=== PATIENT | male | born 1955 | race Caucasian/White ===

== ENCOUNTER → 2018-04-07 | Outpatient (CLI) | payer BC ==
[~2018-04-07] MED LIST: ADVIL200 M1 PO; DEPAKOTE500 MG PO
== END ==
LOC: RAD 15:28
PROVIDERS: ATTEND Internal Medicine
DX: H34.232 Retinal artery branch occlusion, left eye (principal)
CPT/HCPCS: 93306; 93880

== ENCOUNTER 2024-05-16 08:54 | Inpatient (IN) | payer BC, OTHER ==
[2024-05-15 12:27] LABS: BASOPHILS # (AUTO) 0.1 (0.0-0.1); BASOPHILS % 0.9 % (0.0-1.0); EOSINOPHILS # (AUTO) 0.2 (0.0-0.4); EOSINOPHILS % 2.9 % (0.0-6.0); HEMATOCRIT 43.8 % (38.2-49.6); HEMOGLOBIN 14.3 g/dL (14.0-18.0); LYMPHOCYTES # (AUTO) 2.2 (1.0-3.2); LYMPHOCYTES % 38.8 % (18.0-39.1); MEAN CORPUSCULAR HEMOGLOBIN 31.2 pg (28-32); MEAN CORPUSCULAR HGB CONC 32.6 g/dL (31-35); MEAN CORPUSCULAR VOLUME 95.6 fL (81-99); MONOCYTES # (AUTO) 0.6 (0.2-0.8); MONOCYTES % 9.9 % (4.4-11.3); NEUTROPHILS # (AUTO) 2.6 (2.1-6.9); NEUTROPHILS % 47.3 % (38.7-80.0); PLATELET COUNT 193 x10e3/uL (140-360); RED BLOOD COUNT 4.58 x10e6/uL (4.3-5.7); WHITE BLOOD COUNT 5.57 x10e3/uL (4.8-10.8)
[2024-05-15 12:47] LABS: ANION GAP 15.6 mmol/L (8-16); CALCIUM 9.9 mg/dL (8.4-10.2); CREATININE, SERUM 1.06 mg/dL (0.72-1.25); POTASSIUM 4.6 mmol/L (3.5-5.1)
[~2024-05-16] VITALS: Ht 167.6 cm; Wt 92.1 kg
[~2024-05-16 08:54] MED LIST changes: +ASPIRIN81 MG PO; +ATORVASTATIN CA20 MG PO; +CARVEDILOL3.125 MG PO; +FINASTERIDE5 MG PO; +FLOMAX0.4 MG PO; +MONTELUKAST SOD10 MG PO; +MYSOLINE50 MG PO
[2024-05-16] MEDS: SODIUM CHLORIDE 0.9% 1000ML 1,000 ML ONE (09:46)
[2024-05-16] MEDS: GENTAMICIN 80MG/NS 100 ML 200 ML IV ONE (09:46)
[2024-05-16] MEDS: CEFTRIAXONE 1 GM VIAL ONE (09:47)
[2024-05-16] MEDS ORDERED: FENTANYL CITRATE/PF 100MCG/2 ML INJ ONE (13:03)
[2024-05-16] MEDS ORDERED: IOPAMIDOL 610MG/1ML 300 MG/ML VIAL IV ONE (13:30)
[2024-05-16] MEDS ORDERED: ROCURONIUM BROMIDE 10 MG/ML 5ML VIAL IV ONE (13:30)
[2024-05-16] MEDS ORDERED: EPHEDRINE SULFATE INJ 50 MG/ML VIAL ONE (13:30)
[2024-05-16] MEDS ORDERED: DEXAMETHASONE SOD PHOS INJ 4 MG/ML SDV ONE (13:30)
[2024-05-16] MEDS ORDERED: PROPOFOL IV EMULSION 10 MG/ML 20 ML VIAL ONE (13:30)
[2024-05-16] MEDS ORDERED: ONDANSETRON HCL INJ 2MG/ML 2ML 2 MG/ML VIAL ONE (13:30)
[2024-05-16] MEDS ORDERED: LIDOCAINE HCL 2% LOCAL INJ 5 ML SDV VIAL INJ ONE (13:30)
[2024-05-16] MEDS ORDERED: SEVOFLURANE INHAL SOLN 250 ML PEN BTL ONE (13:30)
[2024-05-16] MEDS ORDERED: ACETAMINOPHEN/CODEINE 300MG - 30MG TAB PO PRN (14:45)
[2024-05-16] MEDS ORDERED: DIPHENHYDRAMINE HCL 25 MG CAP PO PRN (14:45)
[2024-05-16] MEDS: HYDROMORPHONE 1MG/1ML INJ ONE (15:03)
[2024-05-16] MEDS: HYDRALAZINE HCL 20 MG/ML VIAL ONE (15:15)
[2024-05-16] MEDS: ACETAMINOPHEN 1000 MG/100 ML IV PRN (15:15)
[2024-05-16 15:50] LABS: BASOPHILS % 0.5 % (0.0-1.0); EOSINOPHILS # (AUTO) 0.1 (0.0-0.4); EOSINOPHILS % 2.1 % (0.0-6.0); HEMATOCRIT 43.5 % (38.2-49.6); LYMPHOCYTES # (AUTO) 1.6 (1.0-3.2); LYMPHOCYTES % 28.9 % (18.0-39.1); MEAN CORPUSCULAR HEMOGLOBIN 31.4 pg (28-32); MEAN CORPUSCULAR HGB CONC 32.2 g/dL (31-35); MEAN CORPUSCULAR VOLUME 97.5 fL (81-99); MONOCYTES # (AUTO) 0.3 (0.2-0.8); MONOCYTES % 5.1 % (4.4-11.3); NEUTROPHILS # (AUTO) 3.6 (2.1-6.9); NEUTROPHILS % 63.2 % (38.7-80.0); PLATELET COUNT 180 x10e3/uL (140-360); RED BLOOD COUNT 4.46 x10e6/uL (4.3-5.7); RED CELL DISTRIBUTION WIDTH 13.3 % (11.7-14.4); WHITE BLOOD COUNT 5.67 x10e3/uL (4.8-10.8)
[2024-05-16 16:09] LABS: ANION GAP 14.7 mmol/L (8-16); CALCIUM 8.7 mg/dL (8.4-10.2); CREATININE, SERUM 0.92 mg/dL (0.72-1.25); POTASSIUM 4.7 mmol/L (3.5-5.1)
[2024-05-16 16:31] VITALS: BP 142/84; PULSE 73; RESP 17; TEMP 97.5; O2SAT 97
[2024-05-16] MEDS: SODIUM CHLORIDE 0.9% 1000ML 1,000 ML IV SCH (16:57)
[2024-05-16] MEDS: SENNA-S TABLET PO SCH (16:57)
[2024-05-16 17:00] VITALS: BP 142/84; PULSE 73; RESP 17; TEMP 97.5; O2SAT 97
[2024-05-16 20:00] VITALS: BP 154/88; PULSE 83; RESP 17; TEMP 97.8; O2SAT 96
[2024-05-16 22:00] VITALS: BP 154/88; PULSE 83; RESP 17; TEMP 97.8; O2SAT 96
[2024-05-16] MEDS: PHENAZOPYRIDINE HCL 100 MG TAB PO PRN (22:15)
[2024-05-17] VITALS (11 sets, daily range): BP systolic 124–153; BP diastolic 71–88; PULSE 75–81; RESP 17–20; TEMP 97.9–98.3; O2SAT 95–98
[2024-05-17 06:17] LABS: BASOPHILS % 0.2 % (0.0-1.0); EOSINOPHILS % 0.2 % (0.0-6.0); HEMOGLOBIN 13.5 g/dL (14.0-18.0); LYMPHOCYTES # (AUTO) 2.2 (1.0-3.2); LYMPHOCYTES % 23.8 % (18.0-39.1); MEAN CORPUSCULAR HEMOGLOBIN 31.6 pg (28-32); MEAN CORPUSCULAR HGB CONC 30.7 g/dL (31-35); MONOCYTES # (AUTO) 0.8 (0.2-0.8); MONOCYTES % 8.9 % (4.4-11.3); NEUTROPHILS # (AUTO) 6.3 (2.1-6.9); NEUTROPHILS % 66.6 % (38.7-80.0); PLATELET COUNT 197 x10e3/uL (140-360); RED BLOOD COUNT 4.27 x10e6/uL (4.3-5.7); RED CELL DISTRIBUTION WIDTH 13.6 % (11.7-14.4); WHITE BLOOD COUNT 9.43 x10e3/uL (4.8-10.8)
[2024-05-17 06:45] LABS: ANION GAP 14.4 mmol/L (8-16); CALCIUM 8.8 mg/dL (8.4-10.2); CREATININE, SERUM 0.89 mg/dL (0.72-1.25); POTASSIUM 4.4 mmol/L (3.5-5.1)
[2024-05-17] MEDS: FINASTERIDE 5 MG TAB PO SCH (08:50)
[2024-05-17] MEDS: TAMSULOSIN HCL 0.4 MG CAP PO SCH (08:51)
[2024-05-17] MEDS: PRIMIDONE 50 MG TAB PO SCH (08:51)
[2024-05-17] MEDS: CARVEDILOL 3.125 MG TAB PO SCH (08:52)
[2024-05-17] MEDS: CEPACOL SORE THROAT LOZENGES PO PRN (11:41)
[2024-05-17] MEDS: TRAMADOL HCL 50 MG TAB PO PRN (15:55)
[2024-05-17] MEDS: DEPAKOTE DELAYED-RELEASE TAB 500 MG PO SCH (21:31)
[2024-05-17] MEDS: MONTELUKAST SODIUM 10 MG TAB PO SCH (21:32)
[2024-05-17] MEDS: ATORVASTATIN 20 MG TAB PO SCH (21:41)
[2024-05-18] VITALS (10 sets, daily range): BP systolic 109–139; BP diastolic 65–88; PULSE 71–82; RESP 17–19; TEMP 97.6–98; O2SAT 95–100
[2024-05-18 05:58] LABS: BASOPHILS % 0.4 % (0.0-1.0); EOSINOPHILS # (AUTO) 0.3 (0.0-0.4); EOSINOPHILS % 3.2 % (0.0-6.0); HEMATOCRIT 38.6 % (38.2-49.6); HEMOGLOBIN 12.1 g/dL (14.0-18.0); LYMPHOCYTES # (AUTO) 3.5 (1.0-3.2); LYMPHOCYTES % 45.2 % (18.0-39.1); MEAN CORPUSCULAR HGB CONC 31.3 g/dL (31-35); MONOCYTES # (AUTO) 0.7 (0.2-0.8); MONOCYTES % 8.9 % (4.4-11.3); NEUTROPHILS # (AUTO) 3.3 (2.1-6.9); NEUTROPHILS % 41.9 % (38.7-80.0); PLATELET COUNT 198 x10e3/uL (140-360); RED CELL DISTRIBUTION WIDTH 13.2 % (11.7-14.4); WHITE BLOOD COUNT 7.78 x10e3/uL (4.8-10.8)
[2024-05-18 06:26] LABS: ANION GAP 13.5 mmol/L (8-16); CALCIUM 8.6 mg/dL (8.4-10.2); CREATININE, SERUM 0.96 mg/dL (0.72-1.25); POTASSIUM 4.5 mmol/L (3.5-5.1)
[2024-05-18] MEDS: Morphine 2mg Syringe 2 MG/ML SYR IV PRN (08:23)
[2024-05-18] MEDS: ONDANSETRON HCL INJ 2MG/ML 2ML 2 MG/ML VIAL IV PRN (08:23)
[2024-05-19] VITALS (11 sets, daily range): BP systolic 109–149; BP diastolic 57–92; PULSE 65–83; RESP 14–20; TEMP 97.1–98.4; O2SAT 95–100
[2024-05-19 06:53] LABS: BASOPHILS % 0.5 % (0.0-1.0); EOSINOPHILS # (AUTO) 0.2 (0.0-0.4); EOSINOPHILS % 3.7 % (0.0-6.0); HEMATOCRIT 38.2 % (38.2-49.6); HEMOGLOBIN 12.1 g/dL (14.0-18.0); LYMPHOCYTES # (AUTO) 2.3 (1.0-3.2); LYMPHOCYTES % 37.1 % (18.0-39.1); MEAN CORPUSCULAR HEMOGLOBIN 31.3 pg (28-32); MEAN CORPUSCULAR HGB CONC 31.7 g/dL (31-35); MONOCYTES # (AUTO) 0.6 (0.2-0.8); NEUTROPHILS % 48.4 % (38.7-80.0); PLATELET COUNT 196 x10e3/uL (140-360); RED BLOOD COUNT 3.86 x10e6/uL (4.3-5.7); RED CELL DISTRIBUTION WIDTH 13.2 % (11.7-14.4); WHITE BLOOD COUNT 6.28 x10e3/uL (4.8-10.8)
[2024-05-19 07:07] LABS: ANION GAP 12.4 mmol/L (8-16); CALCIUM 8.8 mg/dL (8.4-10.2); CREATININE, SERUM 0.92 mg/dL (0.72-1.25); POTASSIUM 4.4 mmol/L (3.5-5.1)
[2024-05-20] VITALS (12 sets, daily range): BP systolic 132–173; BP diastolic 84–107; PULSE 73–85; RESP 16–21; TEMP 97.5–98.4; O2SAT 95–100
[2024-05-20 07:07] LABS: ANION GAP 10.6 mmol/L (8-16); CALCIUM 8.8 mg/dL (8.4-10.2); CREATININE, SERUM 0.9 mg/dL (0.72-1.25); POTASSIUM 4.6 mmol/L (3.5-5.1)
[2024-05-20 08:10] LABS: BASOPHILS % 0.5 % (0.0-1.0); EOSINOPHILS # (AUTO) 0.2 (0.0-0.4); EOSINOPHILS % 3.1 % (0.0-6.0); HEMATOCRIT 37.8 % (38.2-49.6); LYMPHOCYTES # (AUTO) 2.8 (1.0-3.2); LYMPHOCYTES % 45.5 % (18.0-39.1); MEAN CORPUSCULAR HEMOGLOBIN 31.3 pg (28-32); MEAN CORPUSCULAR HGB CONC 31.7 g/dL (31-35); MEAN CORPUSCULAR VOLUME 98.7 fL (81-99); MONOCYTES # (AUTO) 0.6 (0.2-0.8); MONOCYTES % 9.8 % (4.4-11.3); NEUTROPHILS # (AUTO) 2.5 (2.1-6.9); NEUTROPHILS % 40.8 % (38.7-80.0); PLATELET COUNT 199 x10e3/uL (140-360); RED BLOOD COUNT 3.83 x10e6/uL (4.3-5.7); RED CELL DISTRIBUTION WIDTH 13.1 % (11.7-14.4); WHITE BLOOD COUNT 6.04 x10e3/uL (4.8-10.8)
[2024-05-21] VITALS (12 sets, daily range): BP systolic 112–142; BP diastolic 59–93; PULSE 73–98; RESP 16–20; TEMP 97.4–98.1; O2SAT 96–100
[2024-05-22] VITALS (9 sets, daily range): BP systolic 110–135; BP diastolic 74–88; PULSE 77–90; RESP 17–20; TEMP 97.5–98.7; O2SAT 94–98
[2024-05-23] VITALS: BP 142/86; PULSE 82; RESP 17; TEMP 98.9; O2SAT 95
[2024-05-23 04:00] VITALS: BP 120/63; PULSE 78; RESP 18; TEMP 98.6; O2SAT 97
[2024-05-23 07:44] VITALS: BP 160/92; PULSE 78; RESP 18; TEMP 98; O2SAT 96
[2024-05-23 07:46] VITALS: BP 160/92; PULSE 78; RESP 18; TEMP 98; O2SAT 96
[2024-05-23 07:50] VITALS: PULSE 84; RESP 20; O2SAT 98
[2024-05-23] MEDS ORDERED: LEVOFLOXACIN250 MG PO (08:03)
[2024-05-23] MEDS ORDERED: KETOROLAC TROME10 MG PO (08:03)
[2024-05-23 08:46] VITALS: BP 160/92; PULSE 78
== END 2024-05-23 10:13 | disposition home or self-care (01) | DRG 713 ==
LOC: OR 08:54 → PACU V 14:46 → MED/SURG3 16:08
PROVIDERS: ADMIT Internal Medicine; ATTEND Internal Medicine
PROC: 0T7D8ZZ Dilation of Urethra, Via Natural or Artificial Opening Endoscopic (ICD-10-PCS; 2024-05-16)
PROC: BT141ZZ Fluoroscopy of Kidneys, Ureters and Bladder using Low Osmolar Contrast (ICD-10-PCS; 2024-05-16)
PROC: BT10ZZZ Fluoroscopy of Bladder (ICD-10-PCS; 2024-05-16)
PROC: 0V508ZZ Destruction of Prostate, Via Natural or Artificial Opening Endoscopic (ICD-10-PCS; principal; 2024-05-16 13:16)
DX: N40.1 Benign prostatic hyperplasia with lower urinary tract symptoms (principal); D62 Acute posthemorrhagic anemia; N13.8 Other obstructive and reflux uropathy; R31.29 Other microscopic hematuria; N35.919 Unspecified urethral stricture, male, unspecified site; N32.81 Overactive bladder; N31.9 Neuromuscular dysfunction of bladder, unspecified; R97.20 Elevated prostate specific antigen [PSA]; R31.0 Gross hematuria; I10 Essential (primary) hypertension; E78.5 Hyperlipidemia, unspecified; G40.909 Epilepsy, unspecified, not intractable, without status epilepticus; E66.01 Morbid (severe) obesity due to excess calories; Z68.32 Body mass index [BMI] 32.0-32.9, adult; G25.0 Essential tremor; Z86.73 Personal history of transient ischemic attack (TIA), and cerebral infarction without residual deficits; Z79.02 Long term (current) use of antithrombotics/antiplatelets; Z79.82 Long term (current) use of aspirin; Z79.899 Other long term (current) drug therapy
CPT/HCPCS: 36415; 71046; 74420; 80048; 83735; 85025; 88305; 93005; 94799; 99252; C1758; J0360; J0696; J1100; J1171; J1580; J2003; J2270; J2405; J7030

== ENCOUNTER 2024-09-13 20:07 | Emergency (ER) | payer BC, OTHER ==
[~2024-09-13] VITALS: Ht 165.1 cm; Wt 95.3 kg
[~2024-09-13 20:07] MED LIST changes: +KETOROLAC TROME10 MG PO; +LEVOFLOXACIN250 MG PO
[2024-09-13 20:27] VITALS: TEMP 99.5
[2024-09-13 20:49] LABS: WHITE BLOOD COUNT 5.19 x10e3/uL (4.8-10.8)
[2024-09-13 20:50] LABS: HEMATOCRIT 42.4 % (38.2-49.6); HEMOGLOBIN 13.8 g/dL (14.0-18.0); MEAN CORPUSCULAR HEMOGLOBIN 29.6 pg (28-32); MEAN CORPUSCULAR HGB CONC 32.5 g/dL (31-35); RED BLOOD COUNT 4.66 x10e6/uL (4.3-5.7)
[2024-09-13 20:51] LABS: NEUTROPHILS % 3.3 % (38.7-80.0); PLATELET COUNT 114 x10e3/uL (140-360); RED CELL DISTRIBUTION WIDTH 47.1 % (11.7-14.4)
[2024-09-13 20:52] LABS: LYMPHOCYTES % 0.8 % (18.0-39.1); MONOCYTES % 0.8 % (4.4-11.3)
[2024-09-13 20:53] LABS: EOSINOPHILS % 0.3 % (0.0-6.0)
[2024-09-13 20:54] LABS: BASOPHILS # (AUTO) 0.4 (0.0-0.1); MONOCYTES # (AUTO) 16.2 (0.2-0.8)
[2024-09-13] MEDS: ACETAMINOPHEN 325 MG TAB PO ONE (20:56)
[2024-09-13 21:09] LABS: CORONAVIRUS COVID-19 AG NEGATIVE (NEGATIVE); INFLUENZA A AG NEGATIVE (NEGATIVE); INFLUENZA B AG NEGATIVE (NEGATIVE)
[2024-09-13 21:24] LABS: ANION GAP 16.2 mmol/L (8-16); CREATININE, SERUM 1.14 mg/dL (0.72-1.25); POTASSIUM 4.2 mmol/L (3.5-5.1)
[2024-09-13 21:25] LABS: ALBUMIN 3.9 g/dL (3.5-5.0); ALBUMIN/GLOBULIN RATIO 1.3 (0.8-2.0); BILIRUBIN,TOTAL 0.3 mg/dL (0.2-1.2); CALCIUM 8.6 mg/dL (8.4-10.2)
[2024-09-13 21:53] VITALS: PULSE 100; RESP 24; O2SAT 99
[2024-09-13] MEDS ORDERED: AZITHROMYCIN250 MG PO (22:07)
== END 2024-09-13 22:40 | disposition home or self-care (01) ==
LOC: ER 20:12
DX: R50.9 Fever, unspecified (principal); J40 Bronchitis, not specified as acute or chronic; R05.9 Cough, unspecified; R42 Dizziness and giddiness; R51.9 Headache, unspecified; I10 Essential (primary) hypertension; G40.909 Epilepsy, unspecified, not intractable, without status epilepticus; Z86.73 Personal history of transient ischemic attack (TIA), and cerebral infarction without residual deficits; Z95.5 Presence of coronary angioplasty implant and graft
CPT/HCPCS: 36415; 71045; 80053; 83880; 84484; 85025; 93005; 99283